=== PATIENT | female | born 1955 | race Caucasian/White ===

== ENCOUNTER 2016-11-15 19:10 | Emergency (ER) | payer SELFPAY ==
[~2016-11-15] VITALS: Ht 162.6 cm; Wt 73.2 kg
[~2016-11-15 19:10] MED LIST: ADVIL200 MG PO; ALBUTEROL SULF8.5 GM IH; ALLEGRA ALLERG180 MG PO; ALLEGRA30 MG PO; ASPIRIN81 M1 PO; ASPIRIN81 M2 PO; BACTRIM,SEPT1 TABLET PO; BENZONATATE200 MG PO; CLARITIN10 M3 PO; DOXYCYCLINE HY100 M1 PO; FLEXERIL10 MG PO; HYCODAN SYRUP480 ML PO; KEFLEX500 MG; KEPPRA250 MG PO; KEPPRA750 MG PO; LO-DOSE ASPIRIN81 M1 PO; LOMOTIL TABLET1 EACH PO; METOCLOPRAMIDE10 MG PO; OMEPRAZOLE20 M3 PO; OMEPRAZOLE20 MG PO; PERCOCET 5/31 TABLET PO; PriLOSEC PO; TYLENOL WITH C1 EACH PO; Vibramycin, Doryx PO; Zocor PO
[2016-11-15 20:27] LABS: ADD MIUA? YES; BILIRUBIN NEGATIVE; BLOOD TRACE; COLOR YELLOW ((YELLOW)); GLUCOSE (STRIP) NEGATIVE; KETONES NEGATIVE; LEUKOCYTES MODERATE; NITRITE NEGATIVE; PROTEIN (STRIP) TRACE; SPECIFIC GRAVITY 1.033 (1.000-1.030); UROBILINOGEN 0.2 MG/DL (0.2-1.0)
[2016-11-15 20:30] LABS: HEMATOCRIT 40.2 % (36.0-46.0); MCH 29.6 PG (29.0-34.0); MCHC 33.8 G/DL (30.0-36.0); MCV 87.4 FL (83-99); MEAN PLAT.VOLUME 9.9 uM^3 (9.5-12.4); PLATELET COUNT 320 K/uL (156-360); RBC DIS.WIDTH-CV 13.3 % (11.8-14.6); WHITE BLOOD COUNT 6.9 K/uL (4.1-10.2)
[2016-11-15 20:34] LABS: CHLORIDE 107 mEq/L (99-109); POTASSIUM 3.6 mEq/L (3.7-5.4); SODIUM 141 mEq/L (136-147)
[2016-11-15 20:36] LABS: GLUCOSE 85 mg/dL (70-99)
[2016-11-15 20:37] LABS: ANION GAP 9 MEQ/L (2-14)
[2016-11-15 20:38] LABS: TOTAL BILIRUBIN 0.4 mg/dL (0.0-1.0)
[2016-11-15 20:40] LABS: ALKALINE PHOSPHATASE 84 IU/L (3-129); GFR ESTIMATE (CALCULATED) > 59 mL/min/
[2016-11-15 20:41] LABS: DIRECT BILIRUBIN 0.2 mg/dL (0.0-0.3); UREA NITROGEN (BUN) 11 mg/dL (9-23)
[2016-11-15 20:43] LABS: LIPASE 25 U/L (1.0-51.0)
[2016-11-15 20:59] LABS: BACTERIA NONE SEEN /HPF; CASTS NONE SEEN /LPF; CRYSTALS NONE SEEN; EPITHELIAL CELLS 1+ /HPF; MUCUS 2+ /LPF; RED BLOOD CELLS 0-5 /HPF (0-5); UCUL ADDED? NO
[2016-11-16] MEDS ORDERED: NORCO 7.5/321 TABLET PO (01:01)
[2016-11-16] MEDS ORDERED: ZOFRAN ODT4 MG PO (01:01)
[2016-11-16] MEDS ORDERED: MOTRIN800 MG PO (01:01)
[2016-11-16 01:15] VITALS: BP 104/61
== END 2016-11-16 01:40 | disposition home or self-care (01) ==
LOC: RME 19:10 → EME 19:10 → RME 11-16 01:40
DX: R10.11 Right upper quadrant pain (principal); R11.0 Nausea; E86.0 Dehydration; Z91.040 Latex allergy status
CPT/HCPCS: 74177; 76705; 80053; 81003; 82248; 83605; 83690; 85027; 99281; 99285; J1885; J2405; J3010; J7030

== ENCOUNTER → 2016-11-29 | Outpatient (CLI) | payer OTHER ==
[~2016-11-29] MED LIST changes: +MOTRIN800 MG PO; +NORCO 7.5/321 TABLET PO; +ZOFRAN ODT4 MG PO
== END | disposition home or self-care (01) ==
LOC: NUC 06:59
DX: R10.9 Unspecified abdominal pain (principal)
CPT/HCPCS: 78227; A9537; J2805

== ENCOUNTER 2017-02-20 10:02 | Emergency (ER) | payer OTHER ==
[~2017-02-20] VITALS: Ht 165.1 cm; Wt 73.6 kg
[2017-02-20 10:40] LABS: HEMATOCRIT 43.9 % (36.0-46.0); MCV 87.8 FL (83-99); MEAN PLAT.VOLUME 9.3 uM^3 (9.5-12.4); PLATELET COUNT 348 K/uL (156-360); RBC DIS.WIDTH-CV 12.6 % (11.8-14.6); RBC DIS.WIDTH-SD 40.2 % (39-53); WHITE BLOOD COUNT 8.1 K/uL (4.1-10.2)
[2017-02-20 10:53] LABS: CHLORIDE 107 mEq/L (99-109); POTASSIUM 4.1 mEq/L (3.7-5.4); SODIUM 140 mEq/L (136-147)
[2017-02-20 10:55] LABS: GLUCOSE 99 mg/dL (70-99)
[2017-02-20 10:56] LABS: ANION GAP 10 MEQ/L (2-14)
[2017-02-20 10:59] LABS: GFR ESTIMATE (CALCULATED) > 59 mL/min/
[2017-02-20 11:00] LABS: UREA NITROGEN (BUN) 9 mg/dL (9-23)
[2017-02-20 11:03] LABS: TROP-I INTERPRETATION NEGATIVE; TROPONIN-I < 0.01 ng/mL (0.0-0.30)
[2017-02-20] MEDS ORDERED: PREDNISONE20 MG PO (11:13)
[2017-02-20] MEDS ORDERED: AUGMENTIN875 MG PO (11:13)
[2017-02-20] MEDS ORDERED: HYCODAN SYRUP480 ML PO (11:13)
[2017-02-20 11:28] VITALS: BP 123/82
== END 2017-02-20 11:29 | disposition home or self-care (01) ==
LOC: EME 10:02
DX: J30.2 Other seasonal allergic rhinitis (principal); J32.9 Chronic sinusitis, unspecified; R06.2 Wheezing
CPT/HCPCS: 71020; 80048; 84484; 85027; 93005; 94640; 99281; 99283; J7512

== ENCOUNTER → 2017-03-25 | Outpatient (CLI) | payer OTHER ==
[~2017-03-25] MED LIST changes: +AUGMENTIN875 MG PO; +PREDNISONE20 MG PO
== END | disposition home or self-care (01) ==
LOC: RAD 08:48
DX: R22.1 Localized swelling, mass and lump, neck (principal); Z91.040 Latex allergy status
CPT/HCPCS: 76536

== ENCOUNTER → 2017-07-08 | Outpatient (CLI) | payer OTHER | END | disposition home or self-care (01) | LOC: RAD 09:00 | DX: Z86.718 Personal history of other venous thrombosis and embolism (principal); M79.661 Pain in right lower leg | CPT/HCPCS: 93971 ==

== ENCOUNTER 2017-08-19 11:19 | Emergency (ER) | payer OTHER ==
[~2017-08-19] VITALS: Ht 165.1 cm; Wt 73.7 kg
[2017-08-19 11:36] VITALS: BP 149/94
[2017-08-19] MEDS ORDERED: BACTRIM,SEPT1 TABLET PO (14:20)
== END 2017-08-19 14:42 | disposition home or self-care (01) ==
LOC: EME 11:19
DX: L03.011 Cellulitis of right finger (principal); Z79.82 Long term (current) use of aspirin
CPT/HCPCS: 99281; 99283

== ENCOUNTER 2017-09-25 13:20 | Emergency (ER) | payer OTHER ==
[~2017-09-25] VITALS: Ht 167.6 cm; Wt 74.4 kg
[2017-09-25 14:02] LABS: EOSINOPHIL (%) 2.8 % (0-5); EOSINOPHIL COUNT 0.2 K/uL (0-0.3); IMMATURE GRANULOCYTE (%) 0.1 % (0.0-0.7); INSTRUMENT ABS NEUTROPHIL CT 3.8 K/uL; LYMPHOCYTE COUNT 2.2 K/uL (1.0-2.8); MCHC 34.1 G/DL (30.0-36.0); MEAN PLAT.VOLUME 9.5 uM^3 (9.5-12.4); MONOCYTE COUNT 0.6 K/uL (0-0.8); NEUTROPHIL (%) 55.8 % (45-76); NEUTROPHIL COUNT 3.8 K/uL (1.8-6.4); PLATELET COUNT 290 K/uL (156-360); RBC DIS.WIDTH-CV 12.7 % (11.8-14.6); RBC DIS.WIDTH-SD 40.9 % (39-53); RED BLOOD COUNT 4.66 M/uL (3.80-5.20); WHITE BLOOD COUNT 6.9 K/uL (4.1-10.2)
[2017-09-25 14:09] LABS: INTER. NORMALIZED RATIO 1.1; PROTHROMBIN TIME 12.4 SEC (10.2-12.9)
[2017-09-25 14:11] LABS: CHLORIDE 104 mEq/L (99-109); POTASSIUM 4.6 mEq/L (3.7-5.4); SODIUM 140 mEq/L (136-147)
[2017-09-25 14:12] LABS: GLUCOSE 94 mg/dL (70-99); PTT 25.5 SEC (25-37)
[2017-09-25 14:14] LABS: ANION GAP 12 MEQ/L (2-14)
[2017-09-25 14:16] LABS: GFR ESTIMATE (CALCULATED) > 59 mL/min/
[2017-09-25 14:17] LABS: UREA NITROGEN (BUN) 12 mg/dL (9-23)
[2017-09-25 15:30] LABS: C-REACTIVE PROTEIN 9.7 MG/L (0-10)
[2017-09-25] MEDS ORDERED: XARELTO1 EACH PO (15:37)
[2017-09-25 15:47] VITALS: BP 126/94
[2017-09-25 15:47] LABS: ERTH.SED.RATE 11 MM/HR (0-30)
== END 2017-09-25 15:48 | disposition home or self-care (01) ==
LOC: RME 13:20 → EME 13:20 → RME 15:48
PROVIDERS: Physician Assistant
DX: I82.441 Acute embolism and thrombosis of right tibial vein (principal); Z86.718 Personal history of other venous thrombosis and embolism; Z85.828 Personal history of other malignant neoplasm of skin
CPT/HCPCS: 73610; 80048; 84550; 85025; 85610; 85651; 85730; 86140; 93971; 99281; 99283

== ENCOUNTER → 2017-12-09 | Outpatient (CLI) | payer OTHER ==
[~2017-12-09] MED LIST changes: +XARELTO1 EACH PO
== END | disposition home or self-care (01) ==
LOC: RAD 08:46
DX: K22.4 Dyskinesia of esophagus (principal); M25.78 Osteophyte, vertebrae
CPT/HCPCS: 74220

== ENCOUNTER → 2018-05-19 | Outpatient (CLI) | payer OTHER ==
[~2018-05-19] VITALS: Ht 161.3 cm; Wt 78.5 kg
[~2018-05-19] MED LIST changes: +ATORVASTATIN CA40 MG PO; +CALCIUM 500 MG1 EACH PO; +VITAMIN D32000 UNI1 PO; +XARELTO10 MG PO; +ZYRTEC10 M3 PO
== END | disposition home or self-care (01) ==
LOC: AMB 13:33
DX: R13.10 Dysphagia, unspecified (principal); K29.70 Gastritis, unspecified, without bleeding; K21.9 Gastro-esophageal reflux disease without esophagitis; Z86.718 Personal history of other venous thrombosis and embolism; Z79.01 Long term (current) use of anticoagulants; G40.909 Epilepsy, unspecified, not intractable, without status epilepticus; Z91.040 Latex allergy status
CPT/HCPCS: 88305; 88342 TC